=== PATIENT | female | born 1980 | race American Indian/Alaskan Native ===

== ENCOUNTER 2017-01-20 14:40 | Outpatient (CLI) | payer OTHER ==
--- NOTE | 2017-01-21 07:38 | Ultrasound Report ---
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 TECHNIQUE: Grayscale ultrasound. FINDINGS: No comparison. The thyroid gland is at the upper limits of normal size or mildly enlarged. The right thyroid lobe measures 5.6 x 1.8 x 2.0 cm. The left thyroid lobe measures 5.7 x 1.7 x 2.6 cm. There is a tiny 3 mm cyst in the mid right thyroid lobe. No other thyroid lesion. No suspicious nodule or calcifications. Symmetric perfusion on color Doppler. IMPRESSION: Borderline to mild thyromegaly. 3 mm right thyroid lobe cyst. No suspicious thyroid mass.
== END 2017-01-20 14:41 | disposition home or self-care (01) ==
LOC: US 14:40
PROVIDERS: ATTEND Family Medicine
DX: E05.80 Other thyrotoxicosis without thyrotoxic crisis or storm (principal); E04.1 Nontoxic single thyroid nodule
CPT/HCPCS: 76536